=== PATIENT | male | born 1990 | race Caucasian/White ===

== ENCOUNTER 2017-11-01 19:57 | Emergency (ER) | payer OTHER ==
[~2017-11-01] VITALS: Ht 177.8 cm; Wt 75.0 kg
[2017-11-01 20:03] VITALS: BP 189/80; PULSE 119; RESP 26; O2SAT 100
[2017-11-01] MEDS ORDERED: diphenhydrAMINE HCL 50 MG/ML VIAL IM ONE (20:15)
[2017-11-01] MEDS ORDERED: LORazepam 2 MG/ML VIAL IM ONE (20:15)
[2017-11-01] MEDS ORDERED: HALOPERIDOL LACTATE 5 MG/ML AMP IM ONE (20:15)
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
[2017-11-01 20:28] LABS: AUTOMATED NEUTROPHIL # 16.7 TH/MM3 (1.8-7.7); BASOPHIL # 0.1 TH/MM3 (0-0.2); BASOPHIL % 0.4 % (0.0-2.0); EOSINOPHIL # 0.1 TH/MM3 (0-0.4); EOSINOPHIL % 0.3 % (0.0-4.0); HEMATOCRIT 47.4 % (39.0-51.0); HEMOGLOBIN 16.3 GM/DL (13.0-17.0); LYMPH % 6.3 % (9.0-44.0); LYMPHOCYTE # 1.2 TH/MM3 (1.0-4.8); MEAN CELL VOLUME 83.8 FL (80.0-100.0); MEAN CORPUSCULAR HEMOGLOBIN 28.9 PG (27.0-34.0); MEAN CORPUSCULAR HGB CONC 34.5 % (32.0-36.0); MEAN PLATELET VOLUME 8.5 FL (7.0-11.0); MONO % 5.6 % (0.0-8.0); MONOCYTE # 1.1 TH/MM3 (0-0.9); NEUT % 87.4 % (16.0-70.0); PLATELET COUNT 253 TH/MM3 (150-450); RED BLOOD COUNT 5.65 MIL/MM3 (4.50-5.90); RED CELL DISTRIBUTION WIDTH 13.6 % (11.6-17.2); WHITE BLOOD COUNT 19.1 TH/MM3 (4.0-11.0)
[2017-11-01 20:46] LABS: ALBUMIN 4.8 GM/DL (3.4-5.0); ALT (GPT) 33 U/L (12-78); AST (GOT) 29 U/L (15-37); BICARBONATE 22.2 MEQ/L (21.0-32.0); BLOOD UREA NITROGEN 16 MG/DL (7-18); CALCIUM 10.1 MG/DL (8.5-10.1); CHLORIDE 104 MEQ/L (98-107); CREATININE 1.87 MG/DL (0.60-1.30); GLOMERULAR FILTRATION RATE 43 ML/MIN (>89); GLUCOSE,RANDOM 98 MG/DL (74-106); SODIUM (NA) 141 MEQ/L (136-145)
[2017-11-01 20:54] VITALS: BP 147/80; PULSE 103; RESP 18; TEMP 97.9; O2SAT 100
[2017-11-01 20:57] LABS: ALKALINE PHOSPHATASE 94 U/L (45-117); TOTAL BILIRUBIN ADULT 0.9 MG/DL (0.2-1.0); TOTAL PROTEIN 8.9 GM/DL (6.4-8.2)
[2017-11-01 21:33] LABS: ACETAMINOPHEN LESS THAN 2.0 MCG/ML (10.0-30.0)
[2017-11-01 22:30] LABS: BACTERIA, URINE OCC /hpf; BLOOD, URINE NEG (NEG); GLUCOSE,URINE NEG (NEG); HYALINE CAST, URINE 12 /lpf (RARE); KETONE, URINE 40 mg/dL (NEG); MUCUS URINE MANY /lpf (OCC); NITRITE,URINE NEG (NEG); SQUAMOUS EPITHELIAL CELL URINE 2 /hpf (0-5); URINE COLOR DARK-YELLOW (YELLW/STRAW); URINE LEUKOCYTE ESTERASE NEG (NEG)
[2017-11-01 22:31] VITALS: BP 113/60; PULSE 83; RESP 16; TEMP 97.2; O2SAT 100
[2017-11-01 22:33] LABS: BILIRUBIN, URINE NEG (NEG)
[2017-11-02 02:49] VITALS: BP 122/66; PULSE 55; RESP 16; TEMP 98.5; O2SAT 100
[2017-11-02 06:26] VITALS: BP 123/80; PULSE 71; RESP 16; TEMP 97; O2SAT 100
[2017-11-02] MEDS ORDERED: IBUPROFEN 800 MG TAB PO ONE (10:15)
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
--- NOTE | 2017-11-02 10:40 | PD ---
Physical Exam Date Seen by Provider: November 02, 2017 Time Seen by Provider: 10:37 Data Data Last Documented VS Vital Signs Date Time Temp Pulse Resp B/P (MAP) Pulse Ox O2 Delivery O2 Flow Rate FiO2 11/02/17 06:26 97.0 71 16 123/80 (94) 100 11/01/17 20:54 Room Air Orders Orders Complete Blood Count With Diff (11/01/17 20:12) Comprehensive Metabolic Panel (11/01/17 20:12) Thyroid Stimulating Hormone (11/01/17 20:12) Urinalysis - C+S If Indicated (11/01/17 20:12) Psych Screen (11/01/17 20:12) Haloperidol Inj (Haldol Inj) (11/01/17 20:15) Lorazepam Inj (Ativan Inj) (11/01/17 20:15) Drug Screen, Random Urine (11/01/17 20:12) Alcohol (Ethanol) (11/01/17 20:12) Salicylates (Aspirin) (11/01/17 20:12) Tylenol (Acetaminophen) (11/01/17 20:12) Diphenhydramine Inj (Benadryl Inj) (11/01/17 20:15) Diet Regular Basic (11/02/17 Breakfast) Diet Regular Basic (11/02/17 Lunch) Ibuprofen (Motrin) (11/02/17 10:15) Labs Laboratory Tests Test 11/01/17 20:08 11/01/17 21:26 White Blood Count 19.1 TH/MM3 Red Blood Count 5.65 MIL/MM3 Hemoglobin 16.3 GM/DL Hematocrit 47.4 % Mean Corpuscular Volume 83.8 FL Mean Corpuscular Hemoglobin 28.9 PG Mean Corpuscular Hemoglobin Concent 34.5 % Red Cell Distribution Width 13.6 % Platelet Count 253 TH/MM3 Mean Platelet Volume 8.5 FL Neutrophils (%) (Auto) 87.4 % Lymphocytes (%) (Auto) 6.3 % Monocytes (%) (Auto) 5.6 % Eosinophils (%) (Auto) 0.3 % Basophils (%) (Auto) 0.4 % Neutrophils # (Auto) 16.7 TH/MM3 Lymphocytes # (Auto) 1.2 TH/MM3 Monocytes # (Auto) 1.1 TH/MM3 Eosinophils # (Auto) 0.1 TH/MM3 Basophils # (Auto) 0.1 TH/MM3 CBC Comment DIFF FINAL Differential Comment Blood Urea Nitrogen 16 MG/DL Creatinine 1.87 MG/DL Random Glucose 98 MG/DL Total Protein 8.9 GM/DL Albumin 4.8 GM/DL Calcium Level 10.1 MG/DL Alkaline Phosphatase 94 U/L Aspartate Amino Transf (AST/SGOT) 29 U/L Alanine Aminotransferase (ALT/SGPT) 33 U/L Total Bilirubin 0.9 MG/DL Sodium Level 141 MEQ/L Potassium Level 3.5 MEQ/L Chloride Level 104 MEQ/L Carbon Dioxide Level 22.2 MEQ/L Anion Gap 15 MEQ/L Estimat Glomerular Filtration Rate 43 ML/MIN Thyroid Stimulating Hormone 3rd Gen 1.900 uIU/ML Salicylates Level 2.8 MG/DL Acetaminophen Level LESS THAN 2.0 MCG/ML Ethyl Alcohol Level LESS THAN 3 MG/DL Urine Color DARK-YELLOW Urine Turbidity HAZY Urine pH 6.0 Urine Specific [place] 1.031 Urine Protein 100 mg/dL Urine Glucose (UA) NEG mg/dL Urine Ketones 40 mg/dL Urine Occult Blood NEG Urine Nitrite NEG Urine Bilirubin NEG Urine Urobilinogen 2.0 MG/DL Urine Leukocyte Esterase NEG Urine RBC LESS THAN 1 /hpf Urine WBC 5 /hpf Urine Squamous Epithelial Cells 2 /hpf Urine Bacteria OCC /hpf Urine Hyaline Casts 12 /lpf Urine Mucus MANY /lpf Microscopic Urinalysis Comment CULT NOT INDICATED Urine Opiates Screen NEG Urine Barbiturates Screen NEG Urine Amphetamines Screen POS Urine Benzodiazepines Screen NEG Urine Cocaine Screen NEG Urine Cannabinoids Screen POS MDM Supervised Visit with STEPHANIE: No Narrative Course 27 YO M brought to the ED under Culp Act for psychiatric evaluation. He was initially seen by PATO Meade and medically cleared. He was then evaluated by Dr. Wang and the BA was lifted. Diagnosis: polysubstance abuse. Plan is to follow up with [facility] outpatient. Patient is agreeable to the plan. He is stable and discharged home. Diagnosis Primary Impression: Medical clearance for psychiatric admission Additional Impression: Polysubstance abuse [facility] Additional Instruction: Follow up with [facility] for outpatient treatment of substancce abuse. Return to the ED for any urgent or emergent medical condition. Disposition: DISCHARGE HOME Condition: Stable Annalise Boyle November 02, 2017 10:40
== END 2017-11-02 14:30 | disposition home or self-care (01) ==
LOC: NEPJ 19:57
DX: F19.10 Other psychoactive substance abuse, uncomplicated (principal); R00.0 Tachycardia, unspecified
CPT/HCPCS: 80053; 80307; 81001; 84443; 85025; 96372; 99283; J1200; J1630; J2060